=== PATIENT | male | born 1950 | race Caucasian/White ===

== ENCOUNTER 2016-10-09 08:22 | Outpatient (CLI) | payer BC ==
[~2016-10-09] VITALS: Ht 180.3 cm; Wt 90.9 kg
[2016-10-09] VITALS (7 sets, daily range): BP systolic 109–132; BP diastolic 67–81; PULSE 64–71; TEMP 98.2
[~2016-10-09 08:22] MED LIST: ASPIRIN E.C. 8181 MG PO; CARDIZEM 30MG T30 MG PO; COLACE 100100 MG/CAP PO; FERROUS SU325 MG/TAB PO; LIORESAL 1010 MG/TAB PO; LIPITOR20 MG PO; MOBIC15 MG PO; PERCOCET 325 MG1 TAB PO; PRIL40 PO; PRILOSEC 20MG20 MG PO; PROTONIX 40MG T40 MG PO; RT ADVAIR 228 DISKUS IH; ZOFRAN 4MG T4 MG/TAB PO; ZYRTEC 10MG10 MG PO
[2016-10-09] MEDS ORDERED: RT ADVAIR 228 DISKUS IH (09:18)
[2016-10-09] MEDS ORDERED: MOBIC15 MG PO (09:19)
[2016-10-09] MEDS ORDERED: PRIL40 PO (09:19)
[2016-10-09] MEDS ORDERED: BENADRYL25 M2 PO (09:20)
[2016-10-09] MEDS ORDERED: ASPIRIN 81M81 MG/TA2 PO (09:20)
[2016-10-09] MEDS ORDERED: TUMS500 MG (09:21)
[2016-10-09] MEDS ORDERED: ROBAXIN 50500 MG/TAB PO (09:23)
[2016-10-09] MEDS ORDERED: HCTZ 25MG TAB25 MG PO (09:23)
[2016-10-09] MEDS ORDERED: CIPRO 500MG TA500 MG PO (09:26)
[2016-10-09] MEDS ORDERED: PREDNISONE20 MG PO (09:28)
[2016-10-09 10:45] LABS: INR 1.1 (0.8-3.0); PROTHROMBIN TIME 12.3 SECONDS (9.7-12.8)
[2016-10-09 11:03] LABS: CREATININE, serum 1.22 mg/dL (0.66-1.25)
== END 2016-10-09 14:24 | disposition home or self-care (01) ==
LOC: COL.VAS 08:22
PROVIDERS: Radiology Diagnostic Radiology
DX: Z01.818 Encounter for other preprocedural examination (principal); I82.532 Chronic embolism and thrombosis of left popliteal vein; I87.2 Venous insufficiency (chronic) (peripheral)
CPT/HCPCS: J2250; J3010; J7120; Q9967